=== PATIENT | male | born 1975 | race Caucasian/White ===

== ENCOUNTER 2017-08-16 08:27 | Outpatient (CLI) | payer OTHER ==
--- NOTE | 2017-08-16 13:37 | MRI Report ---
EXAM: LEFT SHOULDER MRI WITHOUT CONTRAST EXAM DATE: 08/16/2017 09:24 AM. CLINICAL HISTORY: Left shoulder pain. COMPARISON: None. TECHNIQUE: Multiplanar, multisequence T1-weighted and fluid-sensitive sequences of the shoulder witho ut contrast. Other: None. FINDINGS: Acromioclavicular Region: The acromion is type II. Mild acromioclavicular osteoarthropathy is evidenc ed by bony hypertrophy. The coracoacromial and coracoclavicular ligaments are intact. A minimal amoun t of fluid is in the subacromial/subdeltoid bursa. Glenohumeral Region: No subluxation. No effusion or loose bodies. The articular cartilage is unremark able. The glenohumeral ligaments and joint capsule are unremarkable. Bone Marrow: No fracture, marrow edema or bone lesions. Labrum: The labrum is unremarkable on this nonarthrographic study. Musculature/Rotator Cuff: The subscapularis tendon is unremarkable. The supraspinatus tendon has a pa rtial-thickness, bursal-sided tear that is 4 mm in width, 9 mm in length, and 50% in thickness. The i nfraspinatus and teres minor tendons are intact. No edema or fatty atrophy. Biceps Tendon: The long head of the biceps tendon and biceps bridget are intact. Other: The subcutaneous tissues are unremarkable. IMPRESSION: 1. Mild acromioclavicular osteoarthropathy. 2. Partial tear of the supraspinatus tendon. [facility] MUSCULOSKE[facility]IOLOG[facility] SECTION Referring Provider Line: [phone] SITE ID: [id number]
== END 2017-08-16 08:28 | disposition home or self-care (01) ==
LOC: DI 08:27
PROVIDERS: ATTEND General Practice
DX: M19.012 Primary osteoarthritis, left shoulder (principal); M75.102 Unspecified rotator cuff tear or rupture of left shoulder, not specified as traumatic